=== PATIENT | female | born 2000 | race American Indian/Alaskan Native ===

== ENCOUNTER 2021-06-01 20:07 | Inpatient (IN) | payer OTHER ==
[2021-06-01] MEDS ORDERED: DINOPROSTONE 10 MG VAG SUPP VG ONE (22:43)
[2021-06-01] MEDS: LACTATED RINGERS 1,000 ML IV SCH (23:23)
[2021-06-01] MEDS ORDERED: valACYclovir 500 MG TAB PO SCH (23:30)
[2021-06-02 00:03] LABS: Eosinophils # (Auto) 0.1 K/mm3 (0.0-0.4); Eosinophils % (Auto) 1.2 % (0.0-4.3); Hematocrit 42.5 % (30.3-42.9); Hemoglobin 14.5 gm/dl (10.1-14.3); Lymphocytes # (Auto) 2.6 K/mm3 (1.2-5.4); Lymphocytes % (Auto) 35.4 % (13.4-35.0); Mean Corpuscular HGB Conc 34 % (30-34); Mean Corpuscular Volume 93 fl (79-97); Monocytes # (Auto) 0.4 K/mm3 (0.0-0.8); Monocytes % (Auto) 4.9 % (0.0-7.3); Platelet Count 221 K/mm3 (140-440); Red Blood Count 4.58 M/mm3 (3.65-5.03); Red Cell Distribution Width 14.4 % (13.2-15.2)
[2021-06-02] MEDS: LACTATED RINGERS 1,000 ML IV SCH (07:02)
--- NOTE | 2021-06-02 08:45 | History and Physical Report ---
History of Present Illness Date of examination: 06/02/21 Date of admission: 06/01/21 20:07 Chief complaint: scheduled induction for morbid obesity History of present illness: Pt is a 21 year old female primigravida GENO 06/07/21 at 39w2d who presents for scheduled induction of labor secondary to morbid obesity. She reports no contractions, vaginal bleeding or leakage of fluid. She has had care at [facility]'s counselling psychologist since 10 wks complicated by morbid obesity, trichomonas treated with negative test of cure, genital herpes without lesion or prodrome. She is GBS negative. 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 History: herpes (no lesion or prodrome ), trichomonas (treated with negative test of cure ) Family/Genetic History: none Social history: no significant social history - Obstetrical History Expected Date of Delivery: 06/07/21 Actual Gestation: 39 Week(s) 2 Day(s) : 1 Medications and Allergies Allergies Allergy/AdvReac Type Severity Reaction Status Date / Time No Known Allergies Allergy Verified 06/01/21 22:43 Home Medications Medication Instructions Recorded Confirmed Last Taken Type One Daily Tablet 1 tab PO DAILY 06/02/21 06/02/21 05/31/21 History valACYclovir [Valtrex] 500 mg PO DAILY 06/02/21 06/02/21 06/01/21 History Active Meds: Active Medications Lactated Ringer's (Lactated Ringers) 1,000 mls @ 125 mls/hr IV DIRECT [facility] Last Admin: 06/02/21 07:02 Dose: 125 mls/hr Documented by: Valacyclovir HCl (Valacyclovir 500 Mg Tab) 500 mg PO QDAY [facility] Last Admin: 06/01/21 23:28 Dose: 500 mg Documented by: Review of Systems All systems: negative - Vital Signs Vital signs: Vital Signs Temp Pulse Resp BP Pulse Ox 98.5 F 54 L 18 121/80 100 06/01/21 21:22 06/01/21 21:22 06/01/21 21:22 06/01/21 21:22 06/01/21 21:22 Temp Pulse Resp BP Pulse Ox 98.1 F 61 20 127/58 99 06/02/21 07:47 06/02/21 08:43 06/02/21 07:47 06/02/21 08:04 06/02/21 08:43 - Physical Exam Breasts: Positive: deferred Abdomen: Positive: soft (obese, gravid ) Uterus: Positive: enlarged (gravid ) Extremities: Positive: edema (trace ) - Obstetrical FHR: auscultation normal Uterine Contraction Monitor Mode: External Cervical Dilatation: 0 (per RN ) Uterine Contraction Pattern: Irregular Uterine Tone Measurement Phase: Resting Uterine Contraction Intensity: Mild Results Result Diagrams: 06/01/21 22:15 Abnormal lab results 06/01/21 Range/Units 22:15 Hgb 14.5 H (10.1-14.3) gm/dl Lymph % (Auto) 35.4 H (13.4-35.0) % All other labs normal. Assessment and Plan A: IUP at 39w2d Morbid Obesity Genital Herpes without lesion or prodrome Trichomonas treated with negative test of cure GBS Negative P: Admit to labor and delivery Cervical Ripening with cervidil Valtrex suppression Monitor maternal and status
[2021-06-02] MEDS ORDERED: LIDOCAINE (2%) 20 MG/1 ML VIAL 20 ML MDV INFILTRATI SCH (09:00)
[2021-06-02] MEDS ORDERED: ACETAMINOPHEN 325 MG TAB PO PRN (09:00)
[2021-06-02] MEDS ORDERED: LACTATED RINGERS 1,000 ML IV SCH (09:00)
[2021-06-02] MEDS ORDERED: CARBOPROST TROMETHAMINE 250 MCG/1 ML INJ IM PRN (09:00)
[2021-06-02] MEDS ORDERED: ePHEDrine SULFATE 50 MG/1 ML INJ IV PRN (09:00)
[2021-06-02] MEDS ORDERED: ONDANSETRON 4 MG/2 ML INJ IV PRN (09:00)
[2021-06-02] MEDS ORDERED: OXYTOCIN DRIP 30 UNITS/500 ML BAG IV SCH ×2 (09:00)
[2021-06-02] MEDS ORDERED: BUTORPHANOL 2 MG/1 ML INJ IV PRN (09:00)
[2021-06-02] MEDS ORDERED: METHYLERGONOVINE MALEATE 0.2 MG/ML VIAL IM PRN (09:00)
[2021-06-02] MEDS ORDERED: MINERAL OIL 30 ML ORAL LIQD PO PRN (09:00)
[2021-06-02] MEDS ORDERED: LOPERAMIDE 2 MG CAP PO PRN (09:00)
[2021-06-02] MEDS ORDERED: miSOPROStol 200 MCG TAB PR PRN (09:00)
[2021-06-02] MEDS ORDERED: fentaNYL 100 MCG/2 ML INJ IV PRN (09:00)
[2021-06-02] MEDS ORDERED: TERBUTALINE 1 MG/1 ML INJ SUB-Q PRN (09:30)
[2021-06-02] MEDS ORDERED: OXYTOCIN 10 UNIT/1 ML INJ IM PRN (09:30)
[2021-06-02] MEDS ORDERED: valACYclovir 500 MG TAB PO SCH (22:00)
--- NOTE | 2021-06-03 02:03 | Event Note ---
Date: 06/03/21 On-call provider called secondary to bright red bleeding per vagina and a passage of a clot. Plan to proceed with primary section.
[2021-06-03] MEDS ORDERED: PROMETHAZINE 25 MG RECT SUPP PR PRN (02:04)
[2021-06-03] MEDS ORDERED: NALOXONE 0.4 MG/1 ML INJ IV PRN ×2 (02:04→08:00)
[2021-06-03] MEDS ORDERED: diphenhydrAMINE 50 MG/ML VIAL IV PRN (02:04)
[2021-06-03] MEDS ORDERED: NalbUPHINE 10 MG/1 ML INJ IV PRN (02:04)
[2021-06-03] MEDS ORDERED: PROMETHAZINE 25 MG TAB PO PRN (02:04)
[2021-06-03] MEDS ORDERED: HYDROmorphone 1 MG/1 ML INJ IV PRN (02:04)
[2021-06-03] MEDS ORDERED: ONDANSETRON 4 MG/2 ML INJ IV PRN (02:04)
[2021-06-03] MEDS ORDERED: METOCLOPRAMIDE 10 MG/2 ML INJ IV ONE (02:11)
[2021-06-03] MEDS ORDERED: LACTATED RINGERS 1,000 ML IV SCH (02:15)
[2021-06-03] MEDS ORDERED: ONDANSETRON 4 MG/2 ML INJ ONE (02:16)
[2021-06-03] MEDS ORDERED: KETOROLAC 30 MG/1 ML INJ ONE (02:16)
[2021-06-03] MEDS ORDERED: BUPIVACAINE/PF (0.5%) 5 MG/1 ML 30 ML VIAL INFILTRATI ONE (02:16)
[2021-06-03] MEDS ORDERED: BICITRA ORAL LIQD 30ML PO ONE (02:21)
[2021-06-03] MEDS ORDERED: FAMOTIDINE 20 MG/2 ML INJ IV ONE (02:21)
--- NOTE | 2021-06-03 02:21 | Anesthesia Day of Surgery ---
Anesthesia Day of Surgery - Day of Surgery Patient Examined: Yes Patient H&P Reviewed: Yes Patient is NPO: Yes Beta Blockers: No Cardiac Clearance: No Pulmonary Clearance: No Taz's Test: N/A
--- NOTE | 2021-06-03 02:22 | Anesthesia Consultation ---
Anesthesia Consult and Med Hx Date of service: 06/03/21 - Airway Anesthetic Teeth Evaluation: Good ROM Head & Neck: Adequate Mental/Hyoid Distance: Adequate Mallampati Class: Class IV Intubation Access Assessment: Difficult - Pulmonary Exam CTA: Yes - Cardiac Exam Cardiac Exam: RRR - Pre-Operative Health Status ASA Pre-Surgery Classification: ASA3 Proposed Anesthetic Plan: Spinal Nerve Block: TAP - Pulmonary Hx Smoking: Yes (former) Hx Asthma: No COPD: No Hx Pneumonia: No Hx Sleep Apnea: No - Cardiovascular System Hx Hypertension: No Hx Heart Attack/AMI: No Hx Angina: No - Central Nervous System Hx Seizures: No Hx Psychiatric Problems: No - Gastrointestinal Hx Gastroesophageal Reflux Disease: No - Endocrine Hx Renal Disease: No Hx End Stage Renal Disease: No Hx Liver Disease: No Hx Insulin Dependent Diabetes: No Hx Non-Insulin Dependent Diabetes: No Hx Hypothyroidism: No Hx Hyperthyroidism: No - Hematic Hx Anemia: No Hx Sickle Cell Disease: No - Other Systems Hx Obesity: Yes
[2021-06-03] MEDS ORDERED: PHENYLEPHRINE/NS 1,000 MCG/10 ML SYRINGE (OR USE) IV ONE (02:49)
[2021-06-03] MEDS ORDERED: LACTATED RINGERS 1,000 ML ONE (02:55)
[2021-06-03] MEDS ORDERED: ePHEDrine SULFATE 50 MG/1 ML INJ ONE (02:55)
[2021-06-03] MEDS ORDERED: OXYTOCIN DRIP 30 UNITS/500 ML BAG IV SCH ×2 (03:00→08:00)
[2021-06-03] MEDS ORDERED: SODIUM CHLORIDE 0.9% IRR 1,500 ML BOTTLE IR ONE (03:05)
[2021-06-03] MEDS ORDERED: WATER FOR IRRIG STERILE 1,500 ML BOTTLE IR ONE (03:05)
[2021-06-03] MEDS ORDERED: miSOPROStol 100 MCG TAB ONE (03:35)
[2021-06-03] MEDS ORDERED: OXYTOCIN 10 UNIT/1 ML INJ ONE (03:57)
[2021-06-03] MEDS ORDERED: dexAMETHasone 20 MG/5 ML VIAL ONE (03:57)
[2021-06-03] MEDS ORDERED: miSOPROStol 100 MCG TAB PR PRN (04:00)
--- NOTE | 2021-06-03 04:17 | Procedure Note ---
OB Delivery Note - Delivery Date of Delivery: 06/03/21 Surgeon: SRINIVAS ALTAMIRANO Estimated blood loss: other (1040 mL) - Section Preop diagnosis: other (Vaginal Bleeding, Placental Abruption ) Postop diagnosis: same section procedure: section, repeat low transverse Disposition: PACU Complications: uterine atony Narrative: Please see operative report - A at 1 minute: 4 at 5 minutes: 9 Gender: Female (2945g (6lb 8oz) @ 0320 am)
--- NOTE | 2021-06-03 04:18 | Progress Note ---
Subjective - Subjective Date of service: 06/03/21 Principal diagnosis: [email or web address] Interval history: Pt is a 21 year old female primigravida GENO 06/07/21 at 39w2d who presents for scheduled induction of labor secondary to morbid obesity. She reports no contractions, vaginal bleeding or leakage of fluid. 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 She is GBS negative. Objective - Vital Signs Vital Signs: Vital Signs - 12hr 06/02/21 06/02/21 06/02/21 16:20 16:25 16:30 Pulse Rate 57 L 59 L 55 L Blood Pressure O2 Sat by Pulse 99 99 99 Oximetry O2 Sat by Pulse Oximetry [ Anterior Bilateral Throughout] 06/02/21 06/02/21 06/02/21 16:35 16:56 17:01 Pulse Rate 56 L 60 56 L Blood Pressure O2 Sat by Pulse 99 99 99 Oximetry O2 Sat by Pulse Oximetry [ Anterior Bilateral Throughout] 06/02/21 06/02/21 06/02/21 17:06 17:11 17:16 Pulse Rate 58 L 55 L 59 L Blood Pressure O2 Sat by Pulse 99 98 99 Oximetry O2 Sat by Pulse Oximetry [ Anterior Bilateral Throughout] 06/02/21 06/02/21 06/02/21 17:21 17:26 17:31 Pulse Rate 57 L 59 L 60 Blood Pressure O2 Sat by Pulse 99 99 99 Oximetry O2 Sat by Pulse Oximetry [ Anterior Bilateral Throughout] 06/02/21 06/02/21 06/02/21 17:36 17:41 17:46 Pulse Rate 69 58 L 62 Blood Pressure O2 Sat by Pulse 99 99 98 Oximetry O2 Sat by Pulse Oximetry [ Anterior Bilateral Throughout] 06/02/21 06/02/21 06/02/21 17:51 17:56 18:01 Pulse Rate 61 59 L 68 Blood Pressure O2 Sat by Pulse 99 99 99 Oximetry O2 Sat by Pulse Oximetry [ Anterior Bilateral Throughout] 06/02/21 06/02/21 06/02/21 18:06 18:11 18:16 Pulse Rate 56 L 61 62 Blood Pressure 141/80 O2 Sat by Pulse 99 99 99 Oximetry O2 Sat by Pulse Oximetry [ Anterior Bilateral Throughout] 0906/02/21 06/02/21 18:21 18:26 18:31 Pulse Rate 62 67 64 Blood Pressure O2 Sat by Pulse 99 99 100 Oximetry O2 Sat by Pulse Oximetry [ Anterior Bilateral Throughout] 06/02/21 06/02/21 06/02/21 18:36 18:41 18:46 Pulse Rate 69 58 L 66 Blood Pressure O2 Sat by Pulse 99 100 100 Oximetry O2 Sat by Pulse Oximetry [ Anterior Bilateral Throughout] 06/02/21 06/02/21 06/02/21 18:51 18:56 19:01 Pulse Rate 55 L 61 63 Blood Pressure O2 Sat by Pulse 100 98 100 Oximetry O2 Sat by Pulse Oximetry [ Anterior Bilateral Throughout] 06/02/21 06/02/21 06/02/21 19:06 19:07 19:11 Pulse Rate 58 L 56 L 63 Blood Pressure 129/72 O2 Sat by Pulse 99 99 Oximetry O2 Sat by Pulse Oximetry [ Anterior Bilateral Throughout] 06/02/21 06/02/21 06/02/21 19:16 19:21 19:26 Pulse Rate 61 60 56 L Blood Pressure O2 Sat by Pulse 99 99 99 Oximetry O2 Sat by Pulse Oximetry [ Anterior Bilateral Throughout] 06/02/21 06/02/21 06/02/21 19:31 19:36 19:40 Pulse Rate 61 58 L Blood Pressure O2 Sat by Pulse 100 0 L Oximetry O2 Sat by Pulse 100 Oximetry [ Anterior Bilateral Throughout] 06/02/21 06/02/21 06/02/21 19:48 19:53 19:58 Pulse Rate 55 L 57 L 64 Blood Pressure O2 Sat by Pulse 99 99 99 Oximetry O2 Sat by Pulse Oximetry [ Anterior Bilateral Throughout] 06/02/21 06/02/21 06/02/21 20:03 20:05 20:08 Pulse Rate 54 L 57 L 55 L Blood Pressure 138/81 O2 Sat by Pulse 100 99 Oximetry O2 Sat by Pulse Oximetry [ Anterior Bilateral Throughout] 06/02/21 06/02/21 06/02/21 20:13 20:18 20:23 Pulse Rate 61 57 L 62 Blood Pressure O2 Sat by Pulse 100 99 100 Oximetry O2 Sat by Pulse Oximetry [ Anterior Bilateral Throughout] 06/02/21 06/02/21 06/02/21 20:28 20:33 20:38 Pulse Rate 57 L 57 L 75 Blood Pressure O2 Sat by Pulse 99 100 99 Oximetry O2 Sat by Pulse Oximetry [ Anterior Bilateral Throughout] 06/02/21 06/02/21 06/02/21 20:43 20:48 20:53 Pulse Rate 60 61 60 Blood Pressure O2 Sat by Pulse 100 99 99 Oximetry O2 Sat by Pulse Oximetry [ Anterior Bilateral Throughout] 06/02/21 06/02/21 06/02/21 20:58 21:03 21:08 Pulse Rate 57 L 54 L 55 L Blood Pressure O2 Sat by Pulse 99 100 99 Oximetry O2 Sat by Pulse Oximetry [ Anterior Bilateral Throughout] 06/02/21 06/02/21 06/02/21 21:13 21:18 21:23 Pulse Rate 56 L 60 55 L Blood Pressure O2 Sat by Pulse 99 99 100 Oximetry O2 Sat by Pulse Oximetry [ Anterior Bilateral Throughout] 06/02/21 06/02/21 06/02/21 21:28 21:33 21:38 Pulse Rate 57 L 58 L 59 L Blood Pressure O2 Sat by Pulse 100 100 99 Oximetry O2 Sat by Pulse Oximetry [ Anterior Bilateral Throughout] 06/02/21 06/02/21 06/02/21 21:56 22:01 22:06 Pulse Rate 65 69 62 Blood Pressure O2 Sat by Pulse 98 99 98 Oximetry O2 Sat by Pulse Oximetry [ Anterior Bilateral Throughout] 06/02/21 06/02/21 06/02/21 22:11 22:16 22:21 Pulse Rate 59 L 57 L 61 Blood Pressure O2 Sat by Pulse 99 99 99 Oximetry O2 Sat by Pulse Oximetry [ Anterior Bilateral Throughout] 06/02/21 06/02/21 06/02/21 22:26 22:31 22:36 Pulse Rate 58 L 60 62 Blood Pressure O2 Sat by Pulse 98 99 98 Oximetry O2 Sat by Pulse Oximetry [ Anterior Bilateral Throughout] 06/02/21 06/02/21 06/02/21 22:41 22:46 22:48 Pulse Rate 60 59 L 61 Blood Pressure O2 Sat by Pulse 99 99 94 Oximetry O2 Sat by Pulse Oximetry [ Anterior Bilateral Throughout] 06/02/21 06/02/21 06/02/21 22:51 22:56 22:58 Pulse Rate 70 58 L 67 Blood Pressure O2 Sat by Pulse 98 99 93 Oximetry O2 Sat by Pulse Oximetry [ Anterior Bilateral Throughout] 0906/02/21 06/02/21 23:01 23:06 23:11 Pulse Rate 63 89 69 Blood Pressure O2 Sat by Pulse 99 98 100 Oximetry O2 Sat by Pulse Oximetry [ Anterior Bilateral Throughout] 06/02/21 06/02/21 06/02/21 23:16 23:21 23:26 Pulse Rate 57 L 58 L 55 L Blood Pressure O2 Sat by Pulse 100 99 99 Oximetry O2 Sat by Pulse Oximetry [ Anterior Bilateral Throughout] 06/02/21 06/02/21 06/02/21 23:31 23:36 23:41 Pulse Rate 58 L 57 L 85 Blood Pressure O2 Sat by Pulse 99 100 98 Oximetry O2 Sat by Pulse Oximetry [ Anterior Bilateral Throughout] 06/02/21 06/02/21 06/02/21 23:46 23:51 23:56 Pulse Rate 58 L 54 L 53 L Blood Pressure O2 Sat by Pulse 99 99 99 Oximetry O2 Sat by Pulse Oximetry [ Anterior Bilateral Throughout] 06/03/21 06/03/21 06/03/21 00:01 00:06 00:11 Pulse Rate 55 L 59 L 58 L Blood Pressure O2 Sat by Pulse 100 99 100 Oximetry O2 Sat by Pulse Oximetry [ Anterior Bilateral Throughout] 06/03/21 06/03/21 06/03/21 00:47 00:52 00:57 Pulse Rate 60 70 74 Blood Pressure O2 Sat by Pulse 99 100 98 Oximetry O2 Sat by Pulse Oximetry [ Anterior Bilateral Throughout] 06/03/21 06/03/21 06/03/21 01:02 01:07 01:12 Pulse Rate 65 73 65 Blood Pressure O2 Sat by Pulse 99 98 99 Oximetry O2 Sat by Pulse Oximetry [ Anterior Bilateral Throughout] 06/03/21 06/03/21 06/03/21 01:17 01:22 01:27 Pulse Rate 70 73 71 Blood Pressure O2 Sat by Pulse 98 99 99 Oximetry O2 Sat by Pulse Oximetry [ Anterior Bilateral Throughout] 06/03/21 06/03/21 06/03/21 01:32 01:37 01:42 Pulse Rate 70 67 68 Blood Pressure O2 Sat by Pulse 99 99 97 Oximetry O2 Sat by Pulse Oximetry [ Anterior Bilateral Throughout] 06/03/21 06/03/21 06/03/21 01:47 01:52 01:57 Pulse Rate 84 79 78 Blood Pressure O2 Sat by Pulse 99 99 98 Oximetry O2 Sat by Pulse Oximetry [ Anterior Bilateral Throughout] 06/03/21 06/03/21 06/03/21 02:02 02:07 02:12 Pulse Rate 75 71 80 Blood Pressure O2 Sat by Pulse 99 99 98 Oximetry O2 Sat by Pulse Oximetry [ Anterior Bilateral Throughout] 06/03/21 06/03/21 02:17 02:22 Pulse Rate 81 74 Blood Pressure O2 Sat by Pulse 99 99 Oximetry O2 Sat by Pulse Oximetry [ Anterior Bilateral Throughout] - Labs Labs: Abnormal Labs 06/01/21 22:15 Hgb 14.5 H Lymph % (Auto) 35.4 H Laboratory Results - last 24 hr 06/02/21 09:25 Coronavirus (PCR) Negative
--- NOTE | 2021-06-03 04:20 | Operative Report ---
Operative Report Operative Report: Date of procedure: June 03, 2021 Preoperative diagnosis: 1) IUP at 39w3d 2) Placental Abruption 3) Morbid Obesity Postoperative diagnosis: Same Procedure: Primary low transverse section Surgeon: Hillary العلي M.D. Anesthesia: Regional Findings: 1) Viable female , Apgars 4 and 9, weight 2945 g, (6 lb 8 oz) in cephalic presentation. 2) Normal-appearing uterus ovaries and tubes Estimated blood loss: 1040 mL by QBL IV fluids: 1500 mL Urine output: 250 mL, clear at the end of the procedure Drains: Lutz to gravity Specimens: Placenta to pathology Complications:None. Counts correct x 3 Disposition: Stable to PACU Indication for procedure: Pt is a 21 year old primigravida at 39w3d undergoing induction of labor for morbid obesity who experienced sudden onset of vaginal bleeding concerning for placental abruption. The decision was made to proceed to section. Operation in detail: After the risks, benefits, alternatives and complications were explained to the patient she gave informed consent for the procedure. She was subsequently taken to the operating room where regional anesthesia was noted to be adequate. She was placed in the dorsal supine position with leftward tilt and prepped and draped in a normal sterile fashion. heart tones were noted prior to incision. A timeout was performed. A Pfannenstiel skin incision was made with the knife and carried down to the layer of the fascia with the Bovie. The fascia was incised in the midline and the fascial incision was extended bilaterally with the Bovie. The fascial incision was then stretched. The rectus muscles were then in the midline and partially transected for adequate visualization. The peritoneum was then entered bluntly. The peritoneal incision was extended with good visualization of the bladder. The peritoneal incision was then stretched. An Abraham retractor was placed. The bladder blade was then placed. A transverse incision was made in the lower uterine segment with a knife and extended bilaterally with the bandage scissors. Amniotomy was performed with egress of clear fluid. head delivered with ease, followed by shoulders and body. bulb suctioned at delivery. Cord clamped and cut. handed to NICU staff in attendance. The placenta was then delivered manually. The uterus was then exteriorized and cleared of all clots and debris. The hysterotomy was then reapproximated with 0 Monocryl in a running locked fashion. A second layer of the same suture was used in imbricating fashion. A figure of eight was placed on the right side of the hysterotomy for adequate hemostasis. The hysterotomy was inspected and hemostasis was noted. The gutters were irrigated and cleared of all clots and debris. The hysterotomy was again inspected and noted to be hemostatic. Surgicel was placed over the hysterotomy. The Abraham retractor was removed. The uterus was placed back into the peritoneal cavity. The peritoneum was reapproximated with 0 Monocryl in a running fashion incorporating the rectus muscles. The fascia was reapproximated with 0 Vicryl in a running fashion. The subcutaneous tissue was reapproximated with 2-0 Vicryl in a running fashion. The skin was reapproximated with 3-0 Vicryl in a subcuticular fashion. The incision was then covered with steri strips and a pressure dressing. The procedure was then ended. The patient tolerated the procedure well and was taken to the PACU in stable condition. All instrument, lap, and needle counts were correct 3.
--- NOTE | 2021-06-03 04:38 | Progress Note ---
Spinal Anesthesia Block - Spinal Anesthesia Block Start Time: 02:20 Stop Time: 02:30 Performed by:: MAXIM EATON Procedure: Spinal anesthesia block is being performed for [C/S]. H&P, labs have been reviewed. Patient's questions and concerns have been answered. Informed consent has been performed. Timeout has was performed. Patient in sitting position on side of bed. Sterile prep and drape was performed. 3 mL 1% lidocaine skin wheal at L [3]-L [4]. Needle introducer advanced. 25-gauge spinal needle advanced, [+] CSF [-] blood. [Marcaine 10mg and Precedex 5mcg] Spinal dose was given. All needles removed. Patient tolerated procedure well.
[2021-06-03] MEDS ORDERED: LANOLIN/ZINC/DIMETHICONE (LANSINOH) 7 GM TP PRN (08:00)
[2021-06-03] MEDS ORDERED: SIMETHICONE 80 MG CHEW TAB PO PRN (08:00)
[2021-06-03] MEDS ORDERED: WITCH HAZEL/ GLYCERIN PAD TP PRN (08:00)
[2021-06-03] MEDS ORDERED: D5W/LACTATED RINGERS 1,000 ML IV SCH (08:00)
[2021-06-03] MEDS: KETOROLAC 30 MG/1 ML INJ IV SCH ×2 (08:01→14:36)
[2021-06-03] MEDS: FERROUS SULFATE 325 MG TAB PO SCH (09:28)
[2021-06-03] MEDS: ceFAZolin/NS 1 GM/50 ML 1 GM/50 ML BAG IV SCH ×2 (14:36→22:32)
[2021-06-03 15:33] LABS: Hemoglobin 12.4 gm/dl (10.1-14.3)
[2021-06-03] MEDS: oxyCODONE /ACETAMINOPHEN 5-325MG TAB PO PRN (17:47)
--- NOTE | 2021-06-03 21:48 | Post Anesthesia Evaluation ---
- Post Anesthesia Evaluation Patient Participated: Yes Airway Patent: Yes Stable Respiratory Function: Yes Nausea/Vomiting: No Temp > 96.8F: Yes Pain Manageable: Yes Adequeate Hydration: Yes Anesthesia Complications: No Block Receding Appropriately: Yes Patient on Ventilator: No
[2021-06-03] MEDS ORDERED: MAGNESIUM HYDROXIDE (MOM) ORAL LIQD UDC PO PRN (22:00)
[2021-06-04] MEDS: oxyCODONE /ACETAMINOPHEN 5-325MG TAB PO PRN ×4 (00:47→23:30)
[2021-06-04] MEDS ORDERED: MEASLES, MUMPS & RUBELLA 12,500 UNIT/0.5 ML VACCINE SUB-Q ONE (04:27)
[2021-06-04] MEDS ORDERED: TETANUS,DIPH,PERTUSS(ACELL) VACCINE 0.5 ML SYRINGE IM ONE (04:28)
[2021-06-04] MEDS: IBUPROFEN 600 MG TAB PO PRN ×2 (05:58→12:30)
[2021-06-04] MEDS: FERROUS SULFATE 325 MG TAB PO SCH (09:26)
--- NOTE | 2021-06-04 11:23 | Progress Note ---
Assessment and Plan - Patient Problems (1) delivery delivered Current Visit: Yes Status: Acute Plan to address problem: Patient doing well Routine postoperative care Discharge home tomorrow Subjective - Subjective Date of service: 06/04/21 Interval history: Patient reports feeling well. She is voiding without difficulty. She is tolerating her diet without complication. Patient reports: appetite normal, voiding normally, pain well controlled : doing well Objective - Vital Signs Latest vital signs: Vital Signs Temp Pulse Resp BP Pulse Ox Pulse Ox 06/04/21 07:50 97.6 F 55 L 16 117/67 96 06/04/21 00:38 98.1 F 54 L 20 126/72 99 06/03/21 21:30 97.5 F L 55 L 20 121/72 99 06/03/21 20:33 98 06/03/21 16:18 98.3 F 47 L 18 139/75 95 06/03/21 11:51 56 L 06/03/21 11:43 97.4 F L 48 L 20 145/68 98 Intake and Output 06/03/21 06/04/21 06/04/21 22:59 06:59 14:59 Intake Total 290 480 120 Output Total 500 Balance 290 -20 120 Intake: IV 50 ANCEF/NS 1 GM/50 ML 1 gm 50 In 50 ml @ 100 mls/hr IV Q8H [facility] Rx#:[id number] Oral 240 480 120 Output: Urine 500 Void 500 Other: Total, Intake Amount 240 240 120 Total, Output Amount 500 # Voids Void 1 1 - Exam Incision: Present: dressed
--- NOTE | 2021-06-04 11:24 | Discharge Summary ---
Providers - Providers Date of Admission: 06/02/21 08:45 Date of discharge: 06/05/21 Attending physician: SRINIVAS ALTAMIRANO 06/03/21 06:55 Consult to Senior Bookkeeper [CONS] Routine Reason For Exam: Primary care physician: SRINIVAS ALTAMIRANO Hospitalization Reason for admission: induction of labor Delivery: Procedure: section, primary low transverse Discharge diagnosis: IUP at term delivered Hospital course: The patient was admitted for induction of labor. Her intrapartum course is complicated by presumed placental abruption. The patient was taken for primary delivery. Her postoperative course was uneventful. Condition at discharge: Good Disposition: 01 HOME / SELF CARE / HOMELESS - Discharge Diagnoses (1) delivery delivered Status: Acute Plan - Discharge Medications Prescriptions: Ibuprofen [Motrin] 800 mg PO Q8HR PRN #60 tablet PRN Reason: Pain , Severe (7-10) oxyCODONE /ACETAMINOPHEN [Percocet 5/325] 1 tab PO Q6HR PRN #30 tablet PRN Reason: Pain - Provider Discharge Summary Activity: no sex for 6 weeks, no heavy lifting 4 weeks, no strenuous exercise Diet: routine Instructions: routine Additional instructions: [] Smoking cessation referral if applicable(refer to patient education folder for contact #) [] Refer to [facility] Booklet Call your doctor immediately for: * Fever > 100.5 * Heavy vaginal bleeding ( >1 pad per hour) * Severe persistent headache * Shortness of breath * Reddened, hot, painful area to leg or breast * Drainage or odor from incision. * Keep incision clean and dry at all times and follow doctor's instructions regarding bathing/showering Schedule postop visit in 2 weeks - Follow up plan
[2021-06-05 09:04] VITALS: BP 117/67
[2021-06-05] MEDS: oxyCODONE /ACETAMINOPHEN 5-325MG TAB PO PRN (10:53)
[2021-06-05] MEDS: FERROUS SULFATE 325 MG TAB PO SCH (10:55)
== END 2021-06-05 13:25 | disposition home or self-care (01) | DRG 765 ==
LOC: UNDOADMIN 20:07 → LD 20:07 → OB 06-03 06:23 → LD 06-03 06:23
PROVIDERS: ADMIT Obstetrics & Gynecology; ATTEND Obstetrics & Gynecology
PROC: 10D00Z1 Extraction of Products of Conception, Low, Open Approach (ICD-10-PCS; principal; 2021-06-03)
PROC: 3E0234Z Introduction of Serum, Toxoid and Vaccine into Muscle, Percutaneous Approach (ICD-10-PCS; 2021-06-04)
DX: O99.214 Obesity complicating childbirth (principal); O98.32 Other infections with a predominantly sexual mode of transmission complicating childbirth; Z37.0 Single live birth; E66.01 Morbid (severe) obesity due to excess calories; Z3A.39 39 weeks gestation of pregnancy; A59.9 Trichomoniasis, unspecified; A60.00 Herpesviral infection of urogenital system, unspecified; Z87.891 Personal history of nicotine dependence; O62.2 Other uterine inertia; O45.93 Premature separation of placenta, unspecified, third trimester; Z23 Encounter for immunization; Z20.822 Contact with and (suspected) exposure to COVID-19
CPT/HCPCS: 36415; 59200; 85014; 85018; 85025; 86592; 86850; 86900; 86901; 88307; 90715; 99211; G0378; G0463; J0690; J1100; J1170; J1885; J2370; J2405; J2590; J2765; J3490; J7120; J7121; U0003